=== PATIENT | female | born 1935 | race Caucasian/White ===

== ENCOUNTER 2019-11-04 11:05 | Outpatient (CLI) | payer MEDICARE, OTHER | END 2019-11-04 11:06 | disposition critical access hospital (66) | LOC: EMS 11:05 | PROVIDERS: ATTEND Surgery | DX: R07.89 Other chest pain (principal) | CPT/HCPCS: A0425; A0427 ==

== ENCOUNTER 2019-11-04 11:37 | Emergency (ER) | payer MEDICARE, OTHER ==
[2019-11-04] MEDS ORDERED: SODIUM CHLORIDE 0.9% 1,000 ML IV ONE (12:24)
[2019-11-04 12:50] LABS: BASOPHILS % (AUTO) 0.3 %; EOSINOPHILS % (AUTO) 0.1 %; HGB - HEMOGLOBIN 12.5 g/dL (12.0-16.0); LYMPHOCYTES # (AUTO) 0.8 10^3/uL (1.5-3.5); LYMPHOCYTES % (AUTO) 9.7 %; MEAN CORPUSCULAR HEMOGLOBIN 31.6 pg (27.0-31.0); MEAN CORPUSCULAR HGB CONC 31.7 g/dL (32.0-36.0); MEAN CORPUSCULAR VOLUME 99.5 fL (81.0-99.0); MEAN PLATELET VOLUME 10.3 fL (7.9-10.8); MONOCYTES # (AUTO) 0.5 10^3/uL (0.0-1.0); MONOCYTES % (AUTO) 5.3 %; NEUTROPHILS # (AUTO) 7.2 10^3/uL (1.5-6.6); NEUTROPHILS % (AUTO) 84.3 %; PLT - PLATELET COUNT 164 10^3/uL (130-450); RED BLOOD COUNT 3.96 10^6/uL (4.20-5.40); WHITE BLOOD COUNT 8.6 x10^3/uL (4.8-10.8)
--- NOTE | 2019-11-04 12:54 | ED Physician Documentation ---
PD HPI CHEST PAIN - Stated complaint Stated Complaint: CP - Chief complaint Chief Complaint: Cardiac - History obtained from History obtained from: Patient - History of Present Illness Timing - onset: Enter time (1039), Today Timing - onset during: Light activity Timing - duration: Hours (1) Timing - details: Abrupt onset, Now resolved Quality: Pressure, Tightness, Sharp Location: Substernal, Left chest Radiation: No: Jaw, Neck, Back, Abdominal, Left upper extremity, Right upper extremity Improved by: Nothing Worsened by: Other (nothing) Associated symptoms: Shortness of air Similar symptoms before: Diagnosis (SC) Recently seen: Not recently seen - Additional information Additional information: 84-year-old female with a prior history of coronary artery disease status post 2 stent placements 4-1/2 years ago has developed some chest pain substernal left side after drinking some hot tea. She states that her has recently been diagnosed with lymphoma he is 89 years old and he has stopped eating and drinking. He has been evaluated in the emergency department yesterday and hydrated he has gone back home and his lymphoma is extensive and the patient herself has been in consultation with Dr. De Paz. The patient's is being placed into hospice today. She indicates that she was constipated this morning took a stool softener and had urgency to have a BM with excessive results. She developed the chest pain after drinking some hot tea after the BM. Review of Systems Constitutional: denies: Fever Eyes: denies: Decreased vision Ears: denies: Ear pain Nose: denies: Rhinorrhea / runny nose, Congestion Throat: denies: Sore throat Cardiac: reports: Chest pain / pressure. denies: Palpitations, Pedal edema, Calf pain Respiratory: denies: Dyspnea, Cough GI: reports: Constipation. denies: Nausea, Vomiting : denies: Dysuria, Frequency PD PAST MEDICAL HISTORY - Past Medical History Cardiovascular: Hypertension, Murmur Respiratory: None Endocrine/Autoimmune: HyPOthyroidism GI: GERD MANAGER BIOLOGICS: None : None HEENT: None Psych: None Musculoskeletal: None Derm: None - Past Surgical History Past Surgical History: No - Present Medications Home Medications: Ambulatory Orders Medication Instructions Recorded Confirmed Aspirin [Aspir-Low] 1 mg PO DAILY 02/27/16 02/27/16 Levothyroxine [Synthroid] 75 mcg PO QDAC 02/27/16 02/27/16 Telmisartan [Micardis] 40 mg PO DAILY 02/27/16 02/27/16 hydroCHLOROthiazide 12.5 mg PO DAILY 02/27/16 02/27/16 [Hydrochlorothiazide] - Allergies Allergies/Adverse Reactions: Allergies Allergy/AdvReac Type Severity Reaction Status Date / Time No Known Drug Allergies Allergy Verified 11/04/19 11:47 - Social History Does the pt smoke?: No Smoking Status: Never smoker Does the pt drink ETOH?: Yes Does the pt have substance abuse?: No - Immunizations Immunizations are current?: No Immunizations: TDAP >10years/unknown - POLST Patient has POLST: No PD ED PE NORMAL - Vitals Vital signs reviewed: Yes (wide pulse pressure) - General General: Alert and oriented X 3, No acute distress, Well developed/nourished - HEENT HEENT: Atraumatic, PERRL, EOMI, Ears normal - Neck Neck: Supple, no meningeal sign, No bony TTP - Cardiac Cardiac: RRR, No murmur - Respiratory Respiratory: No respiratory distress, Clear bilaterally - Abdomen Abdomen: Soft, Non tender, No organomegaly - Back Back: No CVA TTP, No spinal TTP - Derm Derm: Normal color, Warm and dry, No rash - Extremities Extremities: No deformity, No edema, No calf tenderness / cord - Neuro Neuro: Alert and oriented X 3, hand striper 2-12 intact, No motor deficit, No sensory deficit, Normal speech Eye Opening: Spontaneous Motor: Obeys Commands Verbal: Oriented GCS Score: 15 - Psych Psych: Normal mood, Normal affect Results - Vitals Vitals: Vital Signs - 24 hr 11/04/19 11/04/19 11/04/19 11:47 12:08 13:00 Temperature 36.6 C Heart Rate 77 82 85 Respiratory 17 18 18 Rate Blood Pressure 122/58 L 125/65 126/85 H O2 Saturation 97 99 97 Oxygen O2 Source Room air - EKG (time done) 1153 Rate: Rate (enter#) (80) Rhythm: NSR Ischemia: Normal ST segments Computer interpretation: Agree with computer - Labs Labs: Laboratory Tests 11/04/19 11/04/19 11/04/19 12:40 12:40 12:40 WBC 8.6 RBC 3.96 L Hgb 12.5 Hct 39.4 MCV 99.5 H MCH 31.6 H MCHC 31.7 L RDW 12.0 Plt Count 164 MPV 10.3 Neut # (Auto) 7.2 H Lymph # (Auto) 0.8 L [place] # (Auto) 0.5 Eos # (Auto) 0.0 Baso # (Auto) 0.0 Absolute Nucleated RBC 0.00 Nucleated RBC % 0.0 Sodium 140 Potassium 4.1 Chloride 105 Carbon Dioxide 25 Anion Gap 10.0 BUN 19 Creatinine 0.7 Estimated GFR (MDRD) 80 L Glucose 99 Lactic Acid 1.3 Calcium 8.8 Magnesium 2.0 Total Bilirubin 1.5 H AST 40 ALT 36 Alkaline Phosphatase 41 L Troponin I High Sens Total Protein 6.8 Albumin 3.8 Globulin 3.0 Albumin/Globulin Ratio 1.3 Lipase 29 11/04/19 12:40 WBC RBC Hgb Hct MCV MCH MCHC RDW Plt Count MPV Neut # (Auto) Lymph # (Auto) [place] # (Auto) Eos # (Auto) Baso # (Auto) Absolute Nucleated RBC Nucleated RBC % Sodium Potassium Chloride Carbon Dioxide Anion Gap BUN Creatinine Estimated GFR (MDRD) Glucose Lactic Acid Calcium Magnesium Total Bilirubin AST ALT Alkaline Phosphatase Troponin I High Sens 340.5 H* Total Protein Albumin Globulin Albumin/Globulin Ratio Lipase - Rads (name of study) chest Radiology: Prelim report reviewed (Impression: 1. Very mild left greater than right interstitial accentuation, improved compared to 2016. 2 No definite focal infiltrate. 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 ) ED course: 84-year-old female with a history of coronary artery disease has come to the emergency department for evaluation of chest pain she is chest pain-free when she arrives to the emergency department she has a normal-appearing electrocardiogram. Her initial high-sensitivity troponin is over 320. She is found to be significantly dehydrated on interrogation of the IVC and she is administered saline. Her chair upholsterer at [facility] is consulted and he recommends transfer with treatment. She is administered for 100 mg of Plavix aspirin 25 mg of metoprolol and she is placed on a heparin drip. The hospitalist at [facility] Dr. myles has accepted patient in transfer. Departure - Departure Disposition: 02 Transfer Acute Care Hosp Clinical Impression: NSTEMI (non-ST elevated myocardial infarction) Condition: Stable
--- NOTE | 2019-11-04 12:55 | XRAY Report ---
Reason: chest pain Procedure Date: 11/04/2019 Accession Number: [id number] / [id number] Procedure: XR - Chest 1 View X-Ray CPT Code: 69124 Final Report FULL RESULT: EXAM: CHEST RADIOGRAPHY EXAM DATE: 11/04/2019 12:44 PM. CLINICAL HISTORY: Chest pain. COMPARISON: CHEST 1 VIEW 02/27/2016 8:36 PM. TECHNIQUE: 1 view. FINDINGS: Lungs/Pleura: Very mild left greater than right interstitial accentuation is improved compared with 2016. No focal infiltrate or consolidation. No pleural effusion. No pneumothorax. No pleural effusion. No pneumothorax. Mediastinum: Within exam limitations, the heart is within normal range of size. Possible mild ectasia of the aortic arch is without lissett change. Other: None. IMPRESSION: 1. Very mild left greater than right interstitial accentuation, improved compared to 2016. 2. No definite focal infiltrate. 3. 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 RADIA
[2019-11-04 13:03] LABS: ALBUMIN 3.8 g/dL (3.2-5.5); ALBUMIN/GLOBULIN RATIO 1.3 (1.0-2.2); BILIRUBIN,TOTAL 1.5 mg/dL (0.2-1.0); CALCIUM 8.8 mg/dL (8.5-10.3); CREATININE 0.7 mg/dL (0.4-1.0); TOTAL PROTEIN 6.8 g/dL (6.7-8.2)
[2019-11-04] MEDS ORDERED: HEPARIN 5,000 UNIT/ML VIAL IVP STA (14:01)
[2019-11-04] MEDS ORDERED: HEPARIN 25000UNITS/500ML (D5W) 25,000 UNIT/500 ML BAG IV STA (14:01)
[2019-11-04] MEDS ORDERED: CLOPIDOGREL 300 MG TABLET PO STA (14:01)
[2019-11-04] MEDS ORDERED: METOPROLOL SUCCINATE 25 MG TABLET PO STA (14:10)
[2019-11-04 15:01] LABS: CLARITY,URINE HAZY (CLEAR); GLUCOSE, URINE (UA) NEGATIVE (NEGATIVE); KETONES,URINE (UA) 40 mg/dL (NEGATIVE); LEUKOCYTE ESTERASE, URINE SMALL (NEGATIVE); NITRITE,URINE NEGATIVE (NEGATIVE); OCCULT BLOOD,URINE TRACE-INTA (NEGATIVE); PH,URINE 5.5 PH (5.0-7.5); PROTEIN,URINE TRACE mg/dL (NEGATIVE); UROBILINOGEN,URINE 0.2 (NORMAL) E.U./dL (NORMAL)
[2019-11-04 15:04] LABS: BILIRUBIN,URINE NEGATIVE (NEGATIVE); ICTOTEST,URINE NEGATIVE
[2019-11-04 15:17] LABS: BACTERIA,URINE Few /HPF (None Seen); CASTS, URINE 11-25 Hyaline Casts /LPF; SQUAMOUS EPITHELIAL CELL,UR FEW Squamous (<= Few)
[2019-11-04 15:48] VITALS: BP 135/65
[2019-11-05] MEDS ORDERED: METOPROLOL SUCCINATE 25 MG TABLET PO SCH (09:00)
== END 2019-11-04 16:26 | disposition short-term general hospital (02) ==
LOC: EDUNIT# → EDBD → ED 11:37
DX: I21.4 Non-ST elevation (NSTEMI) myocardial infarction (principal); E86.0 Dehydration; I10 Essential (primary) hypertension
CPT/HCPCS: 36415; 71045; 80053; 81001; 83605; 83690; 83735; 84484; 85025; 87086; 93005; 96361; 96374; 99284; 99285; A9270; 81003

== ENCOUNTER 2019-11-04 16:19 | Outpatient (CLI) | payer MEDICARE, OTHER | END 2019-11-04 16:20 | disposition short-term general hospital (02) | LOC: EMS 16:19 | PROVIDERS: ATTEND Surgery | DX: R07.89 Other chest pain (principal); R42 Dizziness and giddiness; R61 Generalized hyperhidrosis | CPT/HCPCS: A0425; A0426 ==

== ENCOUNTER 2024-01-20 06:29 | Outpatient (CLI) | payer MEDICARE, OTHER | END 2024-01-20 23:59 | disposition EMS.NT | LOC: EMS 06:29 | DX: R55 Syncope and collapse (principal) ==